=== PATIENT | male | born 1950 | race Caucasian/White ===

== ENCOUNTER 2016-09-09 21:18 | Observation (INO) | payer BC ==
[2016-09-09 21:52] LABS: Hematocrit 36.3 % (42.0-52.0); Hemoglobin 12.2 gm/dL (13.5-18.0); Mean Cell Volume 85.6 fl (78-100); Mean Corpuscular Hemoglobin 28.8 pg (27-31); Mean Corpuscular Hgb Conc 33.6 g/dl (32-36); Mean Platelet Volume 10.3 fl (6.0-9.5); Neutrophil # 6.5 K/mm3 (1.3-6.0); Platelet Count 289 K/mm3 (150-450); Red Blood Count 4.24 M/mm3 (4.7-6.0); Red Cell Distribution Width 13.2 % (11.5-14.0); White Blood Count 10.8 K/mm3 (4.0-10.5)
[2016-09-09 21:53] LABS: Urine Bilirubin Negative (NEGATIVE); Urine Blood Negative /ul (NEGATIVE); Urine Ketone 5 mg/dL (NEGATIVE); Urine Nitrite Negative (NEGATIVE); Urine Protein Negative (NEGATIVE); Urine Specific Gravity 1.025 SP.GR. (1.005-1.030); Urine pH 5.5 pH (5.0-7.0)
--- NOTE | 2016-09-09 21:54 | ERNOTE ---
GI Bleeding/Rectal Pain ER Presenting Symptoms: dark/tarry stools Time Seen by Provider: 09/09/16 21:43 Source: patient Exam Limitations: no limitations Immunizations: IMMUNIZATION HX Immunizations Up to Date Yes History of Influenza Vaccine Yes Hx Pneumococcal Vaccination Yes Allergies/Adverse Reactions: Allergies No Known Allergies Allergy (Verified 09/10/16 03:02) Home Medications: HOME MEDICATIONS Aspirin 81 mg PO DAILY 09/09/16 [Last Taken 09/09/16] Atorvastatin Calcium 09/09/16 [Last Taken 09/09/16] Glimepiride 09/09/16 [Last Taken Unknown] Lisinopril 09/09/16 [Last Taken 09/09/16] Multivitamin [One Daily Essential] 1 each PO DAILY 09/10/16 [Last Taken 09/09/16 ] metFORMIN HCL [Glucophage] 1,000 mg PO BID 09/10/16 [Last Taken 09/09/16] Narrative: Pt began having blood in his stool this evening, after 3 stools that were obviously bloody he came to the ER Timing: constant, getting worse Quality/Severity: Present: moderate Nausea/Vomiting: Present: none Abdominal Pain: Present: none Rectal Bleeding: Present: without stool Associated Symptoms: Reports: dizziness Review of Systems - Review of Systems Constitutional: Present: weakness. Absent: recent illness, fatigue EYE: Present: no symptoms reported ENT: Present: no symptoms reported Respiratory: Present: no symptoms reported Cardiology: Present: no symptoms reported Gastrointestinal/Abdominal: Present: See HPI, eating less. Absent: abdominal pain Genitourinary: Present: no symptoms reported Musculoskeletal: Present: no symptoms reported Skin: Present: no symptoms reported Neurological: Present: no symptoms reported Endocrine: Present: no symptoms reported Hematologic/Lymphatic: Absent: easy bruising, easy bleeding Psych: Present: no symptoms reported - Patient's Past Medical History Patient History - Medical: Diabetes Type 2 Patient History - Cardiac/Respiratory: Hypertension, Hyperlipidemia Patient History - Cancer: No Hx of Cancer Patient History - Surgical Procedures: No surgical history Patient History - Other: None - Family History Mother Family History - Medical: Diabetes Type 2 Family History - Cardiac/Respiratory: Coronary Heart Disease Father Family History - Medical: Diabetes Type 2 Family History - Cardiac/Respiratory: Coronary Heart Disease - Social History Living Situations: home Psych History: No pertinent hx Smoking Status: Former smoker - Immunizations Immunizations Up to Date: Yes Hx Pneumococcal Vaccination: Yes History of Influenza Vaccine: Yes Physical Exam - Physical Exam General Appearance: Present: wd/wn, alert, no apparent distress Eye Exam: Normal inspection: bilateral, PERRL: bilateral, EOMI: bilateral Ears, Nose, Throat: Present: normal ENT inspection, normal pharynx Neck: Present: normal inspection, nontender Respiratory: Present: no respiratory distress, normal breath sounds Cardiovascular/Chest: Present: regular rate, rhythm, no murmur Gastrointestinal/Abdominal: Present: normal bowel sounds, nontender, nondistended, soft Back Exam: Present: normal inspection, normal range of motion, no vertebral tenderness Extremity Exam: Present: normal inspection, normal range of motion, no edema Neurological Exam: Present: alert, oriented, normal mood/affect, no motor/ sensory deficits Skin Exam: Present: normal color, warm/dry ED Progress - Results and Orders Patient's Lab Results:: I have reviewed the patient's lab results. Results and Orders: Laboratory Tests 09/09/16 09/09/16 09/09/16 21:45 21:45 21:45 WBC 10.8 H Hgb 12.2 L Hct 36.3 L Plt Count 289 PT 10.2 INR (Anticoag Therapy) 0.98 PTT ([place]) 26.8 Sodium 141 Potassium 4.2 Chloride 104 Carbon Dioxide 22.8 L BUN 24 H Creatinine 1.08 Est GFR (Non-Af Amer) 73 BUN/Creatinine Ratio 22.2 H Random Glucose 191 H Calcium 9.1 Calcium Adj for Albumin 8.8 Total Bilirubin 0.9 AST 21 ALT 38 Alkaline Phosphatase 113 Total Protein 7.4 Albumin 4.0 Urine Color Urine Appearance Urine pH Ur Specific [place] Urine Protein Urine Glucose (UA) Urine Ketones Urine Blood Urine Nitrate Urine Bilirubin Urine Urobilinogen Ur Leukocyte Esterase Urine RBC Urine WBC Ur Epithelial Cells Urine Bacteria Urine Culture Comments Stool Occult Blood 09/09/16 09/09/16 09/10/16 21:45 21:45 01:55 WBC Hgb 11.7 L Hct 35.6 L Plt Count PT INR (Anticoag Therapy) PTT ([place]) Sodium Potassium Chloride Carbon Dioxide BUN Creatinine Est GFR (Non-Af Amer) BUN/Creatinine Ratio Random Glucose Calcium Calcium Adj for Albumin Total Bilirubin AST ALT Alkaline Phosphatase Total Protein Albumin Urine Color Yellow Urine Appearance Clear Urine pH 5.5 Ur Specific [place] 1.025 Urine Protein Negative Urine Glucose (UA) Negative Urine Ketones 5 Urine Blood Negative Urine Nitrate Negative Urine Bilirubin Negative Urine Urobilinogen 2.0 H Ur Leukocyte Esterase Negative Urine RBC None seen Urine WBC None seen Ur Epithelial Cells None seen Urine Bacteria None seen Urine Culture Comments No culture indicated Stool Occult Blood Positive H - Vital Signs Patient's Vital Signs:: I have reviewed the patient's vital signs. Vital Signs: Vital Signs 09/09/16 21:27 Temperature 37.4 C Pulse Rate 100 Respiratory 17 Rate Blood Pressure 164/92 O2 Sat by Pulse 96 Oximetry - X-Ray X-Ray #1 X-Ray: abdomen Interpretation: Interp. by la X-ray Comments: Air fluid levels with slightly dilated loops of bowel - CT/Ultrasound CT/Ultrasound Narrative: CT abd/ pelvis with IV and oral contrast. Narrowing at the rectosigmoid junction could represent peristalsis. Direct visualization recommended to exclude neoplasm. Moderate retained stool, fatty infiltration of the liver. Otherwise normal - Progress/Reassessment Chief Complaint: GI Bleed Progress:: Unchanged Progress Note-Subjective: 09/10/16 01:57 continues to have melanotic stools, 4-5 while in ED. H&H dropped small amount without dilution, decision to admit. Discussed with Mona BENNETT hospitalist. She agrees to admit for observation and repeat H & H in the am. Departure Clinical Impression: Lower GI bleeding - Departure Disposition: [facility] Condition: Fair
[2016-09-09 22:00] LABS: Urine Appearance Clear; Urine Bacteria None Seen; Urine Color Yellow; Urine RBC None Seen /hpf (0-5); Urine WBC None Seen /hpf (0-5)
[2016-09-09 22:05] LABS: Prothrombin Time (Patient) 10.2 Seconds (9.4-11.4)
[2016-09-09 22:06] LABS: Anion Gap 18.4 mmol/L (6.8-13.8); BUN/Creatinine Ratio 22.2 (9.0-21.6); Bilirubin, Total 0.9 mg/dL (0.0-1.1); Ca. Corrected For Albumin 8.8 mg/dL (8.4-10.2); Calcium * 9.1 mg/dL (7.9-10.9); Carbon Dioxide 22.8 mmol/L (24-32.6); Potassium 4.2 mmol/L (3.4-4.6); Total Protein 7.4 gm/dL (6.2-8.2)
[2016-09-09 22:07] LABS: INR 0.98 INR (0.90-1.10); Partial Thrombolplastin Time 26.8 Seconds (24-32)
[2016-09-09] MEDS ORDERED: DIATRIZOATE MEGLU/DIATRIZO SOD 30 ML BTL PO ONE (23:22)
[2016-09-09] MEDS ORDERED: DIATRIZOATE MEGLU/DIATRIZO SOD 30 ML BTL ONE (23:24)
[2016-09-10 02:02] LABS: Hematocrit 35.6 % (42.0-52.0); Hemoglobin 11.7 gm/dL (13.5-18.0)
--- NOTE | 2016-09-10 03:11 | HP ---
Chief Complaint - Chief Complaint Date of Service: 09/10/16 Chief Complaint: Bloody stool History of Present Illness: 66 years old male adm to the hospital from ER with reports of bloody stools while at home. Associated s/s dizziness and weakness. Pt stated after dinner he had bowel movement and stool was bright red. Within a few minutes he had an additional 3 bowel movement that was hematochezia. Pt then decided to come to the ER. While in ER he had 4 hematochezia. On adm to med-surg pt had bowel movement that was bright red. Hgb on adm 12.2---->11.7 trending down. pt stated he had refused colonoscopy in the past but is now agreeable. He denies hemorrhoids, constipation, abdominal pain, palpitation, hematemesis, alcohol abuse or blood disorder. He report taking Aspirin 81mg daily. PMH significant for Hypertension, diabetes II and hyperlipidemia. Plan of care discussed with pt he verbalized understanding and agrees. - Patient's Past Medical History Patient History - Medical: Diabetes Type 2 Patient History - Cardiac/Respiratory: Hypertension, Hyperlipidemia Patient History - Cancer: No Hx of Cancer Patient History - Surgical Procedures: No surgical history Patient History - Other: None - Family History Family History:: no family history of clotting disorders - Family History Mother Family History - Medical: Diabetes Type 2 Family History - Cardiac/Respiratory: Coronary Heart Disease Father Family History - Medical: Diabetes Type 2 Family History - Cardiac/Respiratory: Coronary Heart Disease - Social History Living Situations: home Psych History: No pertinent hx Smoking Status: Former smoker Have you smoked in the past 12 months: No Do you dip or chew tobacco: No Patient requests Smoking Cessation Consult: No Initiate information on Smoking Cessation: No - Immunizations Immunizations Up to Date: Yes Hx Pneumococcal Vaccination: Yes History of Influenza Vaccine: Yes Review Of Systems (GEN) - Review of Systems Generalized/Overall Review: Present: No Symptoms Reported EENTM: Present: No Symptoms Reported Respiratory: Present: No Symptoms Reported Cardiac: Present: No Symptoms Reported Abdominal: Present: Bright blood from rectum Genitourinary: Present: No Symptoms Reported Musculoskeletal: Present: No Symptoms Reported Neurological: Present: No Symptoms Reported Skin: Present: No Symptoms Reported Endocrine: Present: No Symptoms Reported Allergies/Adverse Reactions: Allergies Allergy/AdvReac Type Severity Reaction Status Date / Time No Known Allergies Allergy Verified 09/10/16 03:02 Home Medications: HOME MEDICATIONS Aspirin 81 mg PO DAILY 09/09/16 [Last Taken 09/09/16] Atorvastatin Calcium 09/09/16 [Last Taken 09/09/16] Glimepiride 09/09/16 [Last Taken Unknown] Lisinopril 09/09/16 [Last Taken 09/09/16] Multivitamin [One Daily Essential] 1 each PO DAILY 09/10/16 [Last Taken 09/09/16 ] metFORMIN HCL [Glucophage] 1,000 mg PO BID 09/10/16 [Last Taken 09/09/16] Exam - Exam Vital Signs: Vital Signs - Last Taken Temp 37.4 C 09/09/16 21:27 Pulse 101 H 09/10/16 02:17 Resp 20 09/10/16 02:17 BP 144/81 09/10/16 02:17 Pulse Ox 96 09/10/16 02:17 Constitutional: Present: Alert, Oriented x3, Cooperative, Well nourished, No distress, Middle aged, Obese ENT Exam: Present: moist mucous membranes Eye Exam: bilateral eye: PERRL Neck: Present: full range of motion Back Exam: Present: normal inspection Breasts: Present: Exam deferred Respiratory: Present: chest non-tender, lungs clear, normal breath sounds, no respiratory distress Cardiovascular/Chest: Present: normal peripheral pulses, regular rate, rhythm, no chest tenderness, no edema Peripheral Pulses: dorsalis-pedis (R): 3+, dorsalis-pedis (L): 3+ Abdomen: Present: soft, nontender, nondistended, no rebound tenderness, other - hyperactive bowel sounds /Rectal: Present: Exam deferred Extremity: Present: normal range of motion, non-tender, normal inspection, no pedal edema, no calf tenderness Skin Exam: Present: normal color, warm/dry, no cyanosis Neurologic: Present: oriented x 3 Appearance: Present: appropriate appearance Eye contact: Present: cooperative, good eye contact Thoughts: Present: normal thought pattern Diagnostic Studies: Laboratory Results WBC 10.8 K/mm3 (4.0-10.5) H 09/09/16 21:45 RBC 4.24 M/mm3 (4.7-6.0) L 09/09/16 21:45 Hgb 11.7 gm/dL (13.5-18.0) L 09/10/16 01:55 Hct 35.6 % (42.0-52.0) L 09/10/16 01:55 MCV 85.6 fl (78-100) 09/09/16 21:45 MCH 28.8 pg (27-31) 09/09/16 21:45 MCHC 33.6 g/dl (32-36) 09/09/16 21:45 RDW 13.2 % (11.5-14.0) 09/09/16 21:45 Plt Count 289 K/mm3 (150-450) 09/09/16 21:45 MPV 10.3 fl (6.0-9.5) H 09/09/16 21:45 Immature Gran % (Auto) 0.50 % (0.001-0.429) H 09/09/16 21:45 Immature Gran # (Auto) 0.05 K/mm3 (0.000-0.0310) H 09/09/16 21:45 Neutrophils % 60.0 % (42-75.0) 09/09/16 21:45 Lymphocytes % 29.7 % (20-51) 09/09/16 21:45 Monocytes % 7.6 % (0.0-9) 09/09/16 21:45 Eosinophils % 1.8 % (0.0-3.0) 09/09/16 21:45 Basophils % 0.4 % (0.0-1.0) 09/09/16 21:45 Nucleated RBC % 0.0 k/mm3 (0-1) 09/09/16 21:45 Neutrophils # 6.5 K/mm3 (1.3-6.0) H 09/09/16 21:45 Lymphocytes # 3.2 k/mm3 (1.5-3.5) 09/09/16 21:45 Monocytes # 0.8 k/mm3 (0.0-1.0) 09/09/16 21:45 Eosinophils # 0.2 k/mm3 (0.0-0.7) 09/09/16 21:45 Absolute Basophils 0.0 k/mm3 (0.0-0.1) 09/09/16 21:45 PT 10.2 Seconds (9.4-11.4) 09/09/16 21:45 INR (Anticoag Therapy) 0.98 INR (0.90-1.10) 09/09/16 21:45 PTT ([place]) 26.8 Seconds (24-32) 09/09/16 21:45 Sodium 141 mmol/L (132-142) 09/09/16 21:45 Plasma Sodium 142 mmol/L (130-142) 09/09/16 21:45 Potassium 4.2 mmol/L (3.4-4.6) 09/09/16 21:45 Chloride 104 mmol/L (97-106) 09/09/16 21:45 Carbon Dioxide 22.8 mmol/L (24-32.6) L 09/09/16 21:45 Anion Gap 18.4 mmol/L (6.8-13.8) H 09/09/16 21:45 BUN 24 mg/dL (6-23) H 09/09/16 21:45 Creatinine 1.08 mg/dL (0.4-1.4) 09/09/16 21:45 Est GFR (Non-Af Amer) 73 mL/min (60-130) 09/09/16 21:45 BUN/Creatinine Ratio 22.2 (9.0-21.6) H 09/09/16 21:45 Random Glucose 191 mg/dL (70-110) H 09/09/16 21:45 Calcium 9.1 mg/dL (7.9-10.9) 09/09/16 21:45 Calcium Adj for Albumin 8.8 mg/dL (8.4-10.2) 09/09/16 21:45 Total Bilirubin 0.9 mg/dL (0.0-1.1) 09/09/16 21:45 AST 21 U/L (0-48) 09/09/16 21:45 ALT 38 U/L (19-67) 09/09/16 21:45 Alkaline Phosphatase 113 U/L (50-170) 09/09/16 21:45 Total Protein 7.4 gm/dL (6.2-8.2) 09/09/16 21:45 Albumin 4.0 gm/dl (3.4-5.0) 09/09/16 21:45 Urine Color Yellow 09/09/16 21:45 Urine Appearance Clear 09/09/16 21:45 Urine pH 5.5 pH (5.0-7.0) 09/09/16 21:45 Ur Specific [place] 1.025 SP.GR. (1.005-1.030) 09/09/16 21:45 Urine Protein Negative mg/dL (NEGATIVE) 09/09/16 21:45 Urine Glucose (UA) Negative mg/dL (NEGATIVE) 09/09/16 21:45 Urine Ketones 5 mg/dL (NEGATIVE) 09/09/16 21:45 Urine Blood Negative /ul (NEGATIVE) 09/09/16 21:45 Urine Nitrate Negative (NEGATIVE) 09/09/16 21:45 Urine Bilirubin Negative mg/dl (NEGATIVE) 09/09/16 21:45 Urine Urobilinogen 2.0 EU/dl (NORMAL) H 09/09/16 21:45 Ur Leukocyte Esterase Negative /ul (NEGATIVE) 09/09/16 21:45 Urine RBC None seen /hpf (0-5) 09/09/16 21:45 Urine WBC None seen /hpf (0-5) 09/09/16 21:45 Ur Epithelial Cells None seen /hpf (0-5) 09/09/16 21:45 Urine Bacteria None seen (NONE) 09/09/16 21:45 Urine Culture Comments No culture indicated 09/09/16 21:45 Stool Occult Blood Positive H 09/09/16 21:45 Blood Type O Positive 09/09/16 21:45 Antibody Screen Negative 09/09/16 21:45 Assessment/Plan - Narrative Narrative: Lower GI bleeding Pt report 3 bright red stool while at home and 4 reports of bloody stool in ER Occult blood + On adm hgb 12.2--->11.7 CT ABD: pending Monitor H/H Q4hr, if Hgb< 8 plan to transfuse PRBC. Initiated IVF and monitor vital signs. Protonix 40 mg Q day Hold Aspirin 81mg q day Acute blood loss anemia- secondary to GI bleeding Plan same as #1 Diabetes II Accu-check AC+HS Keep NPO for now Hold home medications 12/2015 A1C 7.2 Hyperlipidemia-stable Hold home medications until no longer NPO. Hypertension On adm BP 144/81 Continue to monitor. Code status:Full VTE ppx: SCD and ambulate GI ppx : PPI Anticipate discharge 0-1 day and follow up with PCP. Time 30 minutes - Assessment/Plan (1) Lower GI bleeding Problem: Acute (2) Anemia associated with acute blood loss Problem: Acute (3) Hypertension Problem: Chronic Qualifiers: Hypertension type: essential hypertension Qualified Code(s): I10 - Essential (primary) hypertension (4) Hyperlipidemia Problem: Chronic (5) Diabetes Problem: Chronic Qualifiers: Diabetes mellitus type: type 2
[2016-09-10] MEDS: NORMAL SALINE 1,000 ML IV PRN ×2 (03:19→13:10)
[2016-09-10] MEDS: PANTOPRAZOLE SODIUM 40 MG in NORMAL SALINE 100 ML IV SCH (03:24)
[2016-09-10 06:02] LABS: Hematocrit 32.6 % (42.0-52.0); Hemoglobin 10.5 gm/dL (13.5-18.0); Mean Cell Volume 88.8 fl (78-100); Mean Corpuscular Hemoglobin 28.6 pg (27-31); Mean Corpuscular Hgb Conc 32.2 g/dl (32-36); Mean Platelet Volume 11.7 fl (6.0-9.5); Platelet Count 189 K/mm3 (150-450); Red Blood Count 3.67 M/mm3 (4.7-6.0); Red Cell Distribution Width 13.2 % (11.5-14.0); White Blood Count 10.5 K/mm3 (4.0-10.5)
[2016-09-10 06:18] LABS: Albumin * 3.3 gm/dl (3.4-5.0); Anion Gap 17.2 mmol/L (6.8-13.8); BUN/Creatinine Ratio 38.2 (9.0-21.6); Bilirubin, Total 0.7 mg/dL (0.0-1.1); Ca. Corrected For Albumin 8.8 mg/dL (8.4-10.2); Calcium * 8.6 mg/dL (7.9-10.9); Carbon Dioxide 18.9 mmol/L (24-32.6); Potassium 5.1 mmol/L (3.4-4.6); Total Protein 6.5 gm/dL (6.2-8.2)
[2016-09-10] MEDS ORDERED: ACETAMINOPHEN 325 MG TABLET PO PRN (06:24)
[2016-09-10] MEDS ORDERED: diphenhydrAMINE HCL 50 MG/ML VIAL IV PRN (06:24)
[2016-09-10] MEDS ORDERED: FUROSEMIDE 10 MG/ML VIAL IV PRN (06:24)
[2016-09-10] MEDS ORDERED: OCTREOTIDE ACETATE 50 MCG/ML VIAL SC SCH (07:00)
[2016-09-10 10:15] LABS: Hematocrit 31.8 % (42.0-52.0); Hemoglobin 10.5 gm/dL (13.5-18.0); Mean Cell Volume 85.9 fl (78-100); Mean Corpuscular Hemoglobin 28.4 pg (27-31); Mean Platelet Volume 10.3 fl (6.0-9.5); Platelet Count 278 K/mm3 (150-450); Red Cell Distribution Width 13.2 % (11.5-14.0); White Blood Count 10.2 K/mm3 (4.0-10.5)
[2016-09-10 10:25] LABS: Anion Gap 16.9 mmol/L (6.8-13.8); BUN/Creatinine Ratio 37.5 (9.0-21.6); Calcium * 8.6 mg/dL (7.9-10.9); Estimated Creat Clear 85.3; Potassium 4.9 mmol/L (3.4-4.6)
[2016-09-10 13:51] LABS: Hematocrit 30.4 % (42.0-52.0); Mean Cell Volume 85.9 fl (78-100); Mean Corpuscular Hemoglobin 28.2 pg (27-31); Mean Corpuscular Hgb Conc 32.9 g/dl (32-36); Mean Platelet Volume 10.2 fl (6.0-9.5); Platelet Count 273 K/mm3 (150-450); Red Blood Count 3.54 M/mm3 (4.7-6.0); Red Cell Distribution Width 13.2 % (11.5-14.0); White Blood Count 10.4 K/mm3 (4.0-10.5)
[2016-09-10 17:08] LABS: Hematocrit 29.5 % (42.0-52.0); Hemoglobin 9.8 gm/dL (13.5-18.0); Mean Cell Volume 85.5 fl (78-100); Mean Corpuscular Hemoglobin 28.4 pg (27-31); Mean Corpuscular Hgb Conc 33.2 g/dl (32-36); Mean Platelet Volume 10.3 fl (6.0-9.5); Platelet Count 274 K/mm3 (150-450); Red Blood Count 3.45 M/mm3 (4.7-6.0); Red Cell Distribution Width 13.3 % (11.5-14.0); White Blood Count 11.2 K/mm3 (4.0-10.5)
[2016-09-10] MEDS: DEXTROSE 5%-NORMAL SALINE 1,000 ML IV PRN (17:33)
--- NOTE | 2016-09-10 19:23 | CONS ---
[facility] - General Date of Service: 09/10/16 Source: patient, family, RN/MD, RN notes reviewed, old records Exam Limitations: no limitations - History of Present Illness Initial Comments: The patient started by having a loose bloody bright red bowel movement last night. He went to bed and thought it would stop but he had more bleeding and presented to the emergency room and was admitted after an initial evaluation there. Associated Symptoms: other - He denies any abdominal discomfort. Allergies/Adverse Reactions: Allergies No Known Allergies Allergy (Verified 09/10/16 03:02) Home Medications: Home Medications Medication Instructions Recorded Last Taken Aspirin 81 mg PO DAILY 09/10/16 Unknown Atorvastatin Calcium 40 mg PO DAILY 09/10/16 Unknown Glimepiride [Amaryl] 2 mg PO BID 09/10/16 Unknown Lisinopril [Zestril] 10 mg PO DAILY 09/10/16 Unknown Multivitamin [One Daily Essential] 1 each PO DAILY 09/10/16 09/09/16 metFORMIN HCL [Glucophage] 1,000 mg PO BID 09/10/16 09/09/16 - Patient's Past Medical History Patient History - Medical: Diabetes Type 2 Additional info: He has declined colonoscopy in the past Patient History - Cardiac/Respiratory: Hypertension, Hyperlipidemia Patient History - Cancer: No Hx of Cancer Patient History - Surgical Procedures: No surgical history Patient History - Other: None - Family History Family History:: no family history of clotting disorders - Family History Mother Family History - Medical: Diabetes Type 2 Family History - Cardiac/Respiratory: Coronary Heart Disease Father Family History - Medical: Diabetes Type 2 Family History - Cardiac/Respiratory: Coronary Heart Disease - Social History Living Situations: home Psych History: No pertinent hx Smoking Status: Former smoker Have you smoked in the past 12 months: No Do you dip or chew tobacco: No Patient requests Smoking Cessation Consult: No Initiate information on Smoking Cessation: No - Immunizations Immunizations Up to Date: Yes Hx Pneumococcal Vaccination: Yes History of Influenza Vaccine: Yes Procedures CLOSURE SKIN & SUBCUTANEOUS NEC (03/30/10) Medications - Medications Current Medications: Current Medications Pantoprazole Sodium 40 mg/ (Sodium Chloride) 100 mls @ 400 mls/hr IV Q24H SANDRA Stop: 10/10/16 03:01 Last Infusion: 09/10/16 03:39 Dose: Infused Sodium Chloride (Sodium Chloride 0.9%) 1,000 mls @ 125 mls/hr IV .Q8H PRN PRN Reason: HYDRATION Stop: 10/10/16 02:51 Last Admin: 09/10/16 13:10 Dose: 125 mls/hr Dextrose/Sodium Chloride (Dextrose 5%-0.9% Ns) 1,000 mls @ 125 mls/hr IV .Q8H PRN PRN Reason: HYDRATION Stop: 10/10/16 17:16 Last Admin: 09/10/16 17:33 Dose: 125 mls/hr Review of Systems - Review of Systems Generalized/Overall Review: Absent: Chills, Fever, Weight loss EENTM: Present: No Symptoms Reported Respiratory: Present: No Symptoms Reported Cardiac: Present: No Symptoms Reported Abdominal: Present: Other - He generally moves his bowels every other day a low he states he might feel better if he moved his bowels daily. This is the first episode of bleeding by his report Genitourinary: Present: No Symptoms Reported Musculoskeletal: Present: No Symptoms Reported Neurological: Present: No Symptoms Reported Skin: Present: No Symptoms Reported Physical Examination - Exam Vital Signs: Vital Signs - Last Taken Temp 36.6 C 09/10/16 14:18 Pulse 97 09/10/16 14:18 Resp 20 09/10/16 14:18 BP 130/85 09/10/16 14:18 Pulse Ox 94 09/10/16 14:18 O2 Oxygen Delivery Method Room Air Constitutional: Present: Alert, Oriented x3, Cooperative, No distress ENT Exam: Present: normal ENT inspection Eye Exam: bilateral eye: normal inspection Abdomen: Present: other - Obese with mild distention but he denies pain or tenderness currently - Results and Findings: Lab/Microbiology results last 24 hrs: Abnormal/Pending Laboratory Last 24 HRS 09/10/16 09/10/16 09/10/16 17:01 13:45 10:07 WBC 11.2 H RBC 3.45 L 3.54 L Hgb 9.8 L 10.0 L Hct 29.5 L 30.4 L MPV 10.3 H 10.2 H Potassium 4.9 H Carbon Dioxide 21.0 L Anion Gap 16.9 H BUN 33 H BUN/Creatinine Ratio 37.5 H Random Glucose 236 H Albumin 09/10/16 09/10/16 09/10/16 10:07 05:05 05:05 WBC RBC 3.70 L 3.67 L Hgb 10.5 L 10.5 L Hct 31.8 L 32.6 L MPV 10.3 H 11.7 H Potassium 5.1 H D Carbon Dioxide 18.9 L Anion Gap 17.2 H BUN 34 H BUN/Creatinine Ratio 38.2 H Random Glucose [address] scan of the abdomen and pelvis reveals a redundant sigmoid colon. There is a suggestion of narrowing or peristalsis in the sigmoid colon. There is also suggestion of diverticulosis. Nuclear medicine tagged red blood cell scan is negative for active bleeding - Assessments/Findings (1) Lower GI bleeding Diagnosis(s): Currently his bleeding is not hemodynamically significant and tagged red blood cell study is negative for ongoing bleeding. He has lost a significant amount of blood however his hemoglobin has remained stable for the last several determinations. He has never had colon screening. I discussed colon screening with him and the rationale for colonoscopy. I explained the procedure and the risks involved. His questions were answered to his apparent satisfaction and he has given consent for colonoscopy. A signed out sample Suprep kit with instructions was provided. Problem: Acute (2) Anemia associated with acute blood loss Diagnosis(s): Although the bleeding is most likely lower GI in origin, it would be reasonable to perform an EGD to rule out an upper GI source as well. This was explained to the patient and consent obtained for EGD. Problem: Acute
[2016-09-10] MEDS: INSULIN LISPRO 100 UNITS/ML VIAL SC SCH (20:27)
[2016-09-11] MEDS: PANTOPRAZOLE SODIUM 40 MG in NORMAL SALINE 100 ML IV SCH (02:07)
[2016-09-11] MEDS: DEXTROSE 5%-NORMAL SALINE 1,000 ML IV PRN (02:07)
[2016-09-11 06:14] LABS: Hematocrit 25.6 % (42.0-52.0); Hemoglobin 8.3 gm/dL (13.5-18.0); Mean Cell Volume 86.5 fl (78-100); Mean Corpuscular Hgb Conc 32.4 g/dl (32-36); Mean Platelet Volume 10.5 fl (6.0-9.5); Neutrophil # 5.3 K/mm3 (1.3-6.0); Neutrophil % 60.4 % (42-75.0); Platelet Count 226 K/mm3 (150-450); Red Blood Count 2.96 M/mm3 (4.7-6.0); Red Cell Distribution Width 13.4 % (11.5-14.0); White Blood Count 8.7 K/mm3 (4.0-10.5)
[2016-09-11] MEDS: INSULIN LISPRO 100 UNITS/ML VIAL SC SCH ×3 (06:47→17:27)
--- NOTE | 2016-09-11 07:49 | PN ---
Progess Note - Interim Narrative: 09/11/16 07:48 for Colonoscpoy and EGD today. further plans pending endoscopic findings.
[2016-09-11] MEDS ORDERED: RINGERS SOLUTION,LACTATED 1,000 ML IV ONE (10:50)
[2016-09-11 13:24] VITALS: BP 122/97
--- NOTE | 2016-09-11 15:20 | OR ---
Operative Report - Dictated Report Narrative: Operative Report Date of operation: 09/11/2016 Preoperative diagnosis: GI bleeding with anemia Postoperative diagnosis: Normal EGD (biopsy and CLOtest pending). 4 mm polyp hepatic flexure. Sigmoid diverticulosis. No active bleeding site identified Operation: EGD with biopsies. Colonoscopy with hot biopsy forceps polypectomy at the hepatic flexure Surgeon: Dr Perez Anesthesia: BRANDY FORBES CRNA Indications for procedure: The patient is a 66-year-old male presented to the emergency department after passing bright red blood per rectum. GI bleeding scan was negative. CT scan reveals a redundant sigmoid colon with no acute findings. Findings: Relatively normal EGD with exception of submucosal nodule in the mid stomach (pathology and CLOtest pending). 4 mm area of possible polypoid change in the hepatic flexure. Redundant sigmoid colon with multiple large diverticula. No active bleeding site identified Narrative of procedure: The patient was identified preoperatively, and prior to the administration of anesthetic a multidisciplinary timeout was observed EGD: With the patient in the recumbent position, a bite-block was placed, intravenous sedation was administered, and the patient's eyes covered with a towel. The flexible fiberoptic gastroscope was advanced into the posterior pharynx which appeared normal. There was no evidence of epistaxis from above. The supraglottic larynx appeared normal. The cords appeared normal, moved well , and opposed in the midline. The scope was advanced under direct vision into the proximal esophagus which appeared normal. The esophagus appeared freely distensible with normal mucosa. The esophageal mucosa appeared normal down to the gastroesophageal junction which was sharp and noninflamed. The GE junction appeared normally distensible. The scope was advanced into the stomach which was insufflated with air. The gastric mucosa appeared essentially normal. There was one area of some mucosal nodularity in the mid stomach, but the overlying mucosa appeared normal. A retroflexed view of the gastric fundus was normal as was the gastric side of the GE junction. The pylorus appeared patent. The scope was advanced into the duodenal bulb which appeared normal. The scope was advanced further to the horizontal portion of the duodenum which appeared normal, specifically the villous architecture appeared well preserved and clear bile was present. The scope was slowly withdrawn through the duodenal bulb with confirmation that no active ulcer was present. The scope was withdrawn into the stomach and a agricultural sales representative biopsy of gastric mucosa obtained for CLOtest. The area of the submucosal nodularity was biopsied and submitted to pathology. The biopsy sites were seen to be hemostatic. The insufflated air was removed, the scope withdrawn from the patient, and this portion of the procedure terminated. COLONOSCOPY: The patient was then placed in the left lateral position, and the perineum was inspected. There was no evidence of pilonidal disease or skin breakdown. The external appearance of the anus was normal. Sphincter tone was good. The flexible fiberoptic colonoscope was inserted into the rectum which was insufflated with air. The rectal mucosa and submucosal vascular pattern appeared normal, the prep was seen to be complete. The scope was advanced through the sigmoid colon, which was very redundant and contained several very large non-impacted noninflamed diverticular openings. The scope was advanced up the descending colon, and around the splenic flexure where the triangular haustral architecture of the transverse colon was seen. The scope was advanced across the transverse colon, around the hepatic flexure to the cecum, where the confluence of tenia and the ileocecal valve were identified. The mucosa at this level appeared normal. The scope was then slowly withdrawn in a circular fashion so that all aspects of colonic mucosa were inspected. At the hepatic flexure a 4 mm area of possible polypoid change was encountered this was photographed and normal and narrow band light. The area was biopsied and thoroughly destroyed with electrocautery. The site was seen to be complete and hemostatic. The colon was generally capacious in character with a very redundant sigmoid. The haustral architecture appeared well preserved throughout with no evidence of external compression. The mucosa and submucosal vascular pattern appeared normal, specifically there was no gross evidence to suggest colitis or inflammatory bowel disease and no AV malformations were seen. No additional polyps were encountered. The scope was gradually withdrawn to the level of the rectum. As much insufflated air as possible was removed. The scope was withdrawn from the patient and the procedure terminated. The patient tolerated the anesthetic and procedure well without complication and was transferred back to floor awake and in stable condition. Reviewed and electronically signed
--- NOTE | 2016-09-11 15:26 | DS ---
(1) Anemia associated with acute blood loss Problem: Resolved (2) Lower GI bleeding Problem: Resolved (3) Diabetes Problem: Chronic Qualifiers: Diabetes mellitus type: type 2 (4) Hyperlipidemia Problem: Chronic (5) Hypertension Problem: Chronic Qualifiers: Hypertension type: essential hypertension Qualified Code(s): I10 - Essential (primary) hypertension Description of Stay: Donnie Graf, is a 66 years old white male, adm to the hospital from ER with reports of bloody stools while at home on 09/10/2016. Tjis was associated with s/ s dizziness and weakness. Pt stated after dinner he had bowel movement and stool was bright red. Within a few minutes he had an additional 3 bowel movement that was hematochezia. Pt then decided to come to the ER. While in ER he had 4 hematochezia. On adm to med-surg pt had bowel movement that was bright red. Hgb on adm 12.2 to 8.5. trending down. pt stated he had refused colonoscopy in the past but was now agreeable on this admission. He denied hemorrhoids, constipation, abdominal pain, palpitation, hematemesis, alcohol abuse or blood disorder. He report taking Aspirin 81mg daily. PMH significant for Hypertension, diabetes II and hyperlipidemia. Serial H/H was done and he went down to 8.5. He had nuclear bleeding scan and that was negative. His hematochezia ceased yesterday. He underwent colonoscopy and EGD this morning and Dr. Perez did see anymore active bleeding and believed that this was a diverticular bleed. He did get a biopsy from a 4 mm polyp in the hepatic flexure. His EGD also was unremarkavle but H. Pylori is pending. He is back to regular diet and tolerated well. Will hold his Metformin for now and repeat Cr in a.m. due to CTS with contrast and hold his ASA for now. Procedures Performed: see notes below List Procedures: EGD, Colonoscopy Discharge Disposition: Home self care Disposition: Home self-care Condition: Good Discharge Activity: Activity as tolerated Discharge Diet: General/regular food Referrals: Dorota Bronson FNP [Primary Care Provider] - Problem Oriented Discharge Instructions to Patient/Family: Anemia, Nonspecific Additional Patient Instructions (free text): Follow up with PCP - SABRINA Thomas next week. at 10:15. Repeat H/H, Cr in a.m. Complete Home Medications List: Complete Home Medication List: Atorvastatin Calcium 40 mg PO DAILY 09/10/16 Glimepiride [Amaryl] 2 mg PO BID 09/10/16 Lisinopril [Zestril] 10 mg PO DAILY 09/10/16 Multivitamin [One Daily Essential] 1 each PO DAILY 09/10/16 Amb Orders for Discharge: Basic Metabolic Panel Time Frame: 09/12/16, Location: Determined By Patient CBC Time Frame: 09/12/16, Location: Determined By Patient
== END 2016-09-11 16:45 | disposition home or self-care (01) ==
LOC: ER 21:18 → MS 09-10 02:34
PROVIDERS: ADMIT Nurse Practitioner; ATTEND Internal Medicine
PROC: 0DBK8ZX Excision of Ascending Colon, Via Natural or Artificial Opening Endoscopic, Diagnostic (ICD-10-PCS; principal; 2016-09-11 10:50)
PROC: 0DJ08ZZ Inspection of Upper Intestinal Tract, Via Natural or Artificial Opening Endoscopic (ICD-10-PCS; 2016-09-11 10:50)
DX: K57.31 Diverticulosis of large intestine without perforation or abscess with bleeding (principal); D62 Acute posthemorrhagic anemia; D12.3 Benign neoplasm of transverse colon; E11.9 Type 2 diabetes mellitus without complications; I10 Essential (primary) hypertension; E78.5 Hyperlipidemia, unspecified
CPT/HCPCS: 36415; 43235; 45384; 74020; 74177; 78278; 80048; 80053; 81001; 82272; 85014; 85018; 85025; 85027; 85610; 85730; 86850; 86900; 87081; 88305; 88312; 88313; 96365; 96366; 96375; 99284; A9560; G0378

== ENCOUNTER 2019-04-26 18:56 | Observation (INO) ==
--- NOTE | 2019-04-26 19:07 | ERNOTE ---
GI Bleeding/Rectal Pain ER Presenting Symptoms: rectal bleeding Time Seen by Provider: 04/26/19 19:00 Source: patient Exam Limitations: no limitations Immunizations: IMMUNIZATION HX Immunizations Up to Date Yes History of Influenza Vaccine No Hx Pneumococcal Vaccination Yes Allergies/Adverse Reactions: Allergies No Known Allergies Allergy (Verified 04/26/19 19:05) Home Medications: HOME MEDICATIONS Multivitamin [One Daily Essential] 1 ea PO DAILY 09/10/16 [Last Taken 09/09/16] blood-glucose meter kit See Dose Instructions .ROUTE .MEDSUPPLY #1 ea 01/12/18 [Last Taken Unknown] atorvastatin 40 mg tablet 40 mg PO DAILY #90 tab 10/30/18 [Last Taken Unknown] glimepiride 2 mg tablet 2 mg PO BID #180 tab 10/30/18 [Last Taken Unknown] lisinopril 10 mg tablet 10 mg PO DAILY #90 tab 10/30/18 [Last Taken Unknown] metformin 500 mg tablet 1,000 mg PO BID #360 tab 10/30/18 [Last Taken Unknown] Narrative: Patient states that around 17:00 he had the urge to have a bowel movement and passed some stool with bright red blood twice, no clots. He denies any pain neither abdominal nor rectally, no vomiting, no fever, no aspirin use nor any blood thinners. He had a similar episode two years ago, Hb decreased to 8.3, the bleeding stoppe d on its own and a EGD and colonoscopy didn't reveal any obvious bleeding source. it was assumed to be diverticular, no bleeding since Date (Duration): 04/26/19 Time (Timing): 17:00 Timing: intermittent Nausea/Vomiting: Present: blood Abdominal Pain: Present: none Rectal Bleeding: Present: blood mixed with stool Associated Symptoms: Reports: light headedness. Denies: constipation/hard stools, diarrhea Prior Treament: Reports: similar symptoms before. Denies: recently seen Review of Systems - Review of Systems Constitutional: Absent: recent illness, fever ENT: Present: no symptoms reported Respiratory: Absent: shortness of breath, cough Cardiology: Absent: chest pain Gastrointestinal/Abdominal: Present: See HPI. Absent: nausea, vomiting, abdominal pain Genitourinary: Present: no symptoms reported Musculoskeletal: Absent: back pain Neurological: Absent: headache Hematologic/Lymphatic: Absent: easy bruising, easy bleeding Medical History (Updated 04/26/19 @ 19:41 by Dennise Victoria MD) Lower GI bleed (Resolved) Onset Date: ~09/2016 Hypertension (Chronic) Onset Date: Unknown Hyperlipidemia (Chronic) Onset Date: Unknown Diverticulosis (Chronic) Onset Date: Unknown Type 2 diabetes mellitus (Chronic) Onset Date: Unknown Surgical History: Surgical History (Updated 01/12/18 @ 08:17 by Antonia Rebolledo RN) H/O colonoscopy Onset Date: ~09/2016 Dr Perez-serrated adenoma. Recheck in 3 years H/O esophagogastroduodenoscopy Onset Date: ~09/2016 Ana- clotest negative. Mild Chemical gastritis. Family History: Family History (Updated 01/12/18 @ 08:17 by Antonia Rebolledo RN) Father , age 44 Diabetes Heart disease Mother Diabetes Social History: (Last Reviewed 04/26/19 @ 19:05 by Abimbola Crain RN) Social History: jail: No Marital status: lives independently: No household members: spouse current occupational status: employed current occupation: Manager [employer] Highest education level completed: high school graduate Service: No Tobacco: Smoking Status: Former smoker Alcohol: alcohol intake: current alcohol intake frequency: a few times a month Substance Use: substance use type: does not use Dietary Habits: caffeine: Yes caffeine comment: daily Type: coffee Physical Exam - Physical Exam General Appearance: Present: wd/wn, alert, no apparent distress, obese Respiratory: Present: no respiratory distress, normal breath sounds, no accessory muscle use, lungs clear Cardiovascular/Chest: Present: regular rate, rhythm, no murmur Gastrointestinal/Abdominal: Present: normal bowel sounds, nontender, nondistended, soft Rectal Exam: Present: nontender, normal rectal tone, other - gross blood, no obvious source of bleeding. Absent: hemorrhoids Extremity Exam: Present: no edema Neurological Exam: Present: alert, oriented, normal mood/affect Skin Exam: Present: normal color, warm/dry Progress - Results and Orders Patient's Lab Results:: I have reviewed the patient's lab results. - Vital Signs Patient's Vital Signs:: I have reviewed the patient's vital signs. Vital Signs: Vital Signs 04/26/19 19:00 Temperature 36.2 C Pulse Rate 114 H Respiratory Rate 20 Blood Pressure 143/75 O2 Sat by Pulse Oximetry 96 - X-Ray X-Ray #1 X-Ray: abdomen - normal bowel gas pattern Interpretation: Interp. by me - Progress/Reassessment Progress Note-Subjective: 04/26/19 19:28 passed passed bright red blood in bathroom with minimal stool 04/26/19 19:57 discussed with Ana recommends admission and serial H/H 04/26/19 20:03 discussed with wilver Can to admit for observation 04/26/19 20:23 patient agreed to admission Departure Clinical Impression: Lower GI bleed - Departure Disposition: Still a patient Condition: Stable
[2019-04-26 19:45] LABS: Hematocrit 33.3 % (42.0-52.0); Hemoglobin 11.1 gm/dL (13.5-18.0); Mean Cell Volume 88.8 fl (78-100); Mean Corpuscular Hemoglobin 29.6 pg (27-31); Mean Corpuscular Hgb Conc 33.3 g/dl (32-36); Mean Platelet Volume 10.4 fl (8-11.3); Neutrophil # 5.9 K/mm3 (1.3-6.0); Neutrophil % 62.5 % (42-75.0); Platelet Count 242 K/mm3 (150-450); Red Blood Count 3.75 M/mm3 (4.7-6.0); Red Cell Distribution Width 12.8 % (11.5-14.0); White Blood Count 9.5 K/mm3 (4.0-10.5)
[2019-04-26 20:02] LABS: Albumin * 3.8 gm/dl (3.4-5.0); Anion Gap 15.5 mmol/L (6.8-13.8); BUN/Creatinine Ratio 28.7 (9.0-21.6); Bilirubin, Total 1.1 mg/dL (0.0-1.1); Ca. Corrected For Albumin 8.7 mg/dL (8.4-10.2); Calcium * 8.9 mg/dL (7.9-10.9); Carbon Dioxide 22.6 mmol/L (24-32.6); Potassium 4.1 mmol/L (3.4-4.6); Total Protein 6.6 gm/dL (6.2-8.2)
[2019-04-26] MEDS: NORMAL SALINE 1,000 ML IV PRN (20:33)
[2019-04-27 02:17] LABS: Hemoglobin 9.6 gm/dL (13.5-18.0)
[2019-04-27] MEDS: NORMAL SALINE 1,000 ML IV PRN (04:44)
[2019-04-27] MEDS ORDERED: ACETAMINOPHEN 325 MG TABLET PO PRN (08:04)
[2019-04-27] MEDS ORDERED: NORMAL SALINE 1,000 ML IV ONE (08:05)
[2019-04-27] MEDS ORDERED: PANTOPRAZOLE SODIUM 40 MG in NORMAL SALINE 100 ML IV SCH (08:15)
--- NOTE | 2019-04-27 08:29 | HP ---
Chief Complaint - Chief Complaint Date of Service: 04/27/19 Time of Service: 08:16 Chief Complaint: I had a bloody bowel movement yesterday afternoon History of Present Illness: 68-year-old male with past medical history of diverticular disease, hyperlipidemia, hypertension, obesity, type 2 diabetes, and previous lower GI bleeding was evaluated in our ER for an episode of a bloody painless bowel movements that occurred in his home yesterday. Patient reports having similar episodes 2 years ago for which he was hospitalized and treated with IV fluids and placed on monitoring with serial H&H. Patient also underwent upper and lo wer endoscopy for the episode which did not reveal any significant findings, however he was found to have diverticular disease. Patient describes episode as painless with no abdominal pain or distention but after having several subsequent bloody bowel movements was concerned enough to come to the ER. He denied any other symptoms such as chest pain, shortness of breath, or dizziness. Medical History (Last Reviewed 04/26/19 @ 21:21 by Danya Smith RN) Lower GI bleed (Resolved) Onset Date: ~09/2016 Hypertension (Chronic) Onset Date: Unknown Hyperlipidemia (Chronic) Onset Date: Unknown Diverticulosis (Chronic) Onset Date: Unknown Type 2 diabetes mellitus (Chronic) Onset Date: Unknown Surgical History: Surgical History (Last Reviewed 04/26/19 @ 21:22 by Danya Smith RN) H/O colonoscopy Onset Date: ~09/2016 Dr Perez-serrated adenoma. Recheck in 3 years H/O esophagogastroduodenoscopy Onset Date: ~09/2016 Ana- clotest negative. Mild Chemical gastritis. Family History: Family History (Last Reviewed 04/26/19 @ 21:22 by Danya Smith RN) Father , age 44 Diabetes Heart disease Mother Diabetes Social History: (Last Reviewed 04/26/19 @ 21:22 by Danya Smith RN) Social History: jail: No Marital status: lives independently: No household members: spouse current occupational status: employed current occupation: [employer]er [employer] Highest education level completed: high school graduate Service: No Tobacco: Smoking Status: Former smoker Alcohol: alcohol intake: current alcohol intake frequency: a few times a month Substance Use: substance use type: does not use Dietary Habits: caffeine: Yes caffeine comment: daily Type: coffee Peds Patient Hx - Developmental: No Pertinent Hx Peds Patient Hx - Medical: No Pertinent Hx Peds Patient Hx - Cardiac/Respiratory: No Pertinent Hx Peds Patient Hx - Surgical: No Surgical History Patient History - Cancer: No Hx of Cancer Review Of Systems (GEN) - Review of Systems Generalized/Overall Review: Present: No Symptoms Reported EENTM: Present: No Symptoms Reported Respiratory: Present: No Symptoms Reported Cardiac: Present: No Symptoms Reported Abdominal: Present: Bright blood from rectum Genitourinary: Present: No Symptoms Reported Musculoskeletal: Present: No Symptoms Reported Neurological: Present: No Symptoms Reported Skin: Present: No Symptoms Reported Endocrine: Present: No Symptoms Reported Immunizations: IMMUNIZATION HX Immunizations Up to Date Yes History of Influenza Vaccine No Hx Pneumococcal Vaccination Yes Allergies/Adverse Reactions: Allergies Allergy/AdvReac Type Severity Reaction Status Date / Time No Known Allergies Allergy Verified 04/26/19 19:05 Home Medications: HOME MEDICATIONS Multivitamin [One Daily Essential] 1 ea PO DAILY 09/10/16 [Last Taken 09/09/16] blood-glucose meter See Dose Instructions .ROUTE .MEDSUPPLY #1 ea 01/12/18 [Last Taken Unknown] atorvastatin 40 mg tablet 40 mg PO DAILY #90 tab 10/30/18 [Last Taken Unknown] glimepiride 2 mg tablet 2 mg PO BID #180 tab 10/30/18 [Last Taken Unknown] lisinopril 10 mg tablet 10 mg PO DAILY #90 tab 10/30/18 [Last Taken Unknown] metformin 500 mg tablet 1,000 mg PO BID #360 tab 10/30/18 [Last Taken Unknown] Exam - Exam Vital Signs: Vital Signs - Last Taken Temp 36.7 C 04/27/19 07:00 Pulse 77 04/27/19 08:00 Resp 18 04/27/19 07:00 BP 99/66 04/27/19 07:00 Pulse Ox 97 04/27/19 07:00 Constitutional: Present: Alert, Oriented x3, Cooperative, Well developed, Well nourished, No distress, Morbidly obese Eye Exam: bilateral eye: normal inspection, PERRL, EOMI Neck: Present: non-tender, full range of motion, supple, normal inspection, trachea midline Back Exam: Present: normal inspection, no CVA tenderness, no vertebral tenderness Breasts: Present: Exam deferred Respiratory: Present: chest non-tender, lungs clear, normal breath sounds, no respiratory distress, no accessory muscle use Cardiovascular/Chest: Present: normal peripheral pulses, regular rate, rhythm, no chest tenderness, no edema, no gallop, no JVD, no murmur, no rub Peripheral Pulses: carotid (R): 3+, carotid (L): 3+, femoral (R): 3+, femoral (L): 3+, dorsalis-pedis (R): 4+, dorsalis-pedis (L): 4+ Abdomen: Present: Normal bowel sounds, soft, nontender, nondistended, no rebound tenderness, no hepatospenomegaly, no masses, obese /Rectal: Present: Exam deferred Extremity: Present: normal range of motion, non-tender, normal inspection, no pedal edema, no calf tenderness, normal capillary refill, pelvis stable Skin Exam: Present: normal color, warm/dry, no cyanosis Lymphatic: Present: no adenopathy Neurologic: Present: pit clerk II-XII nml as tested, normal cerebellar test, no motor/sensory deficits, alert, normal mood/affect, oriented x 3 Appearance: Present: appropriate appearance, appropriate insight, neat, no memory impairment Eye contact: Present: cooperative, good eye contact, normal speech Thoughts: Present: normal thought pattern, no apparent hallucination Diagnostic Studies: Abnormal Lab Results 04/26/19 04/26/19 04/26/19 Range/Units 19:21 19:40 19:45 RBC 3.75 L (4.7-6.0) M/mm3 Hgb 11.1 L (13.5-18.0) gm/dL Hct 33.3 L (42.0-52.0) % Immature Gran # (Auto) 0.04 H (0.000-0.0310) K/mm3 Carbon Dioxide 22.6 L (24-32.6) mmol/L Anion Gap 15.5 H (6.8-13.8) mmol/L BUN 27 H D (6-23) mg/dL BUN/Creatinine Ratio 28.7 H (9.0-21.6) Random Glucose 213 H (70-110) mg/dL Stool Occult Blood Positive H 04/27/19 Range/Units 02:15 RBC (4.7-6.0) M/mm3 Hgb 9.6 L (13.5-18.0) gm/dL Hct 29.0 L (42.0-52.0) % Immature Gran # (Auto) (0.000-0.0310) K/mm3 Carbon Dioxide (24-32.6) mmol/L Anion Gap (6.8-13.8) mmol/L BUN (6-23) mg/dL BUN/Creatinine Ratio (9.0-21.6) Random Glucose (70-110) mg/dL Stool Occult Blood Laboratory Results WBC 9.5 K/mm3 (4.0-10.5) 04/26/19 19:40 RBC 3.75 M/mm3 (4.7-6.0) L 04/26/19 19:40 Hgb 9.6 gm/dL (13.5-18.0) L 04/27/19 02:15 Hct 29.0 % (42.0-52.0) L 04/27/19 02:15 MCV 88.8 fl (78-100) 04/26/19 19:40 MCH 29.6 pg (27-31) 04/26/19 19:40 MCHC 33.3 g/dl (32-36) 04/26/19 19:40 RDW 12.8 % (11.5-14.0) 04/26/19 19:40 Plt Count 242 K/mm3 (150-450) 04/26/19 19:40 MPV 10.4 fl (8-11.3) 04/26/19 19:40 Immature Gran % (Auto) 0.40 % (0.001-0.429) 04/26/19 19:40 Immature Gran # (Auto) 0.04 K/mm3 (0.000-0.0310) H 04/26/19 19:40 Neutrophils % 62.5 % (42-75.0) 04/26/19 19:40 Lymphocytes % 28.3 % (20-51) 04/26/19 19:40 Monocytes % 7.4 % (0.0-9) 04/26/19 19:40 Eosinophils % 1.0 % (0.0-3.0) 04/26/19 19:40 Basophils % 0.4 % (0.0-1.0) 04/26/19 19:40 Nucleated RBC % 0.0 k/mm3 (0-1) 04/26/19 19:40 Neutrophils # 5.9 K/mm3 (1.3-6.0) 04/26/19 19:40 Lymphocytes # 2.68 k/mm3 (1.5-3.5) 04/26/19 19:40 Monocytes # 0.7 k/mm3 (0.0-1.0) 04/26/19 19:40 Eosinophils # 0.1 k/mm3 (0.0-0.7) 04/26/19 19:40 Absolute Basophils 0.0 k/mm3 (0.0-0.1) 04/26/19 19:40 Sodium 136 mmol/L (132-142) 04/26/19 19:45 Plasma Sodium 138 mmol/L (130-142) 04/26/19 19:45 Potassium 4.1 mmol/L (3.4-4.6) 04/26/19 19:45 Chloride 102 mmol/L (97-106) 04/26/19 19:45 Carbon Dioxide 22.6 mmol/L (24-32.6) L 04/26/19 19:45 Anion Gap 15.5 mmol/L (6.8-13.8) H 04/26/19 19:45 BUN 27 mg/dL (6-23) H D 04/26/19 19:45 Creatinine 0.94 mg/dL (0.4-1.4) 04/26/19 19:45 Est GFR (Non-Af Amer) 85 mL/min (60-130) 04/26/19 19:45 BUN/Creatinine Ratio 28.7 (9.0-21.6) H 04/26/19 19:45 Random Glucose 213 mg/dL (70-110) H 04/26/19 19:45 Calcium 8.9 mg/dL (7.9-10.9) 04/26/19 19:45 Calcium Adj for Albumin 8.7 mg/dL (8.4-10.2) 04/26/19 19:45 Total Bilirubin 1.1 mg/dL (0.0-1.1) 04/26/19 19:45 AST 21 U/L (0-48) 04/26/19 19:45 ALT 27 U/L (19-67) 04/26/19 19:45 Alkaline Phosphatase 90 U/L (50-170) 04/26/19 19:45 Total Protein 6.6 gm/dL (6.2-8.2) 04/26/19 19:45 Albumin 3.8 gm/dl (3.4-5.0) 04/26/19 19:45 Stool Occult Blood Positive H 04/26/19 19:21 Assessment/Plan - Narrative Narrative: Patient was evaluated and medical chart was reviewed and decision to admit for a lower GI bleed and mild dehydration was made. Patient reports several more episodes of bloody stools throughout the night since reaching the floor, the last one occurring this morning around 6 AM. He denies any abdominal pain or a ny new symptoms. Currently he is being treated with IV fluids for hydration and for improvement of his hypotension. Patient was evaluated by the general surgeon Dr. Perez who recommends waiting for a bleeding scan to confirm that the bleeding has stopped and if his hemoglobin stabilizes he can be discharged home with instructions to follow-up with his PCP. In the meantime patient has been placed on Protonix and is being monitored with serial hemoglobin and hematocrit. So far his hemoglobin has dropped from 11.1-9.6, will wait for the next 1 to determine if there is ongoing bleeding. - Assessment/Plan (1) Lower GI bleed Problem: Acute (2) Diverticulosis Problem: Chronic (3) Type 2 diabetes mellitus Problem: Chronic Qualifiers: (4) Hypotension Problem: Acute Qualifiers: Hypotension type: hypotension due to hypovolemia Qualified Code(s): I95.89 - Other hypotension; E86.1 - Hypovolemia (5) Anemia Problem: Acute Qualifiers: Other causes of anemia: acute posthemorrhagic
[2019-04-27 08:50] LABS: Hematocrit 29.1 % (42.0-52.0); Hemoglobin 9.6 gm/dL (13.5-18.0)
--- NOTE | 2019-04-27 08:53 | CONS ---
[facility] - General Date of Service: 04/26/19 Source: patient, family, RN/MD, RN notes reviewed, old records Exam Limitations: no limitations - History of Present Illness Initial Comments: He felt fine when he went to work at 3 AM. He stopped in [employer] to fuel up and felt the urge to move his bowels. He had blood and bowel movement. He has had several bloody stool since. He has not had any abdominal pain. He does not feel lightheaded. Severity: mild Modifying Factors - (Worsens): Reports: other - Nothing Modifying Factors - (Improves): Reports: other - Nothing Associated Symptoms: denies symptoms Allergies/Adverse Reactions: Allergies No Known Allergies Allergy (Verified 04/26/19 19:05) Home Medications: Home Medications Medication Instructions Recorded Last Taken Multivitamin [One Daily Essential] 1 ea PO DAILY 09/10/16 09/09/16 blood-glucose meter See Dose Instructions .ROUTE 01/12/18 Unknown .MEDSUPPLY #1 ea atorvastatin 40 mg tablet 40 mg PO DAILY #90 tab 10/30/18 Unknown glimepiride 2 mg tablet 2 mg PO BID #180 tab 10/30/18 Unknown lisinopril 10 mg tablet 10 mg PO DAILY #90 tab 10/30/18 Unknown metformin 500 mg tablet 1,000 mg PO BID #360 tab 10/30/18 Unknown Procedures CLOSURE SKIN & SUBCUTANEOUS NEC (03/30/10) Excision of Ascending Colon, Via Natural or Artificial Opening Endoscopic, Diagnostic (09/10/16) Inspection of Upper Intestinal Tract, Via Natural or Artificial Opening Endoscopic (09/10/16) Medications - Medications Current Medications: Current Medications See home medication list (reviewed) Review of Systems - Review of Systems Generalized/Overall Review: Absent: Chills, Fever, Diaphoresis, Fatigue EENTM: Present: No Symptoms Reported Respiratory: Absent: Shortness of Breath Cardiac: Absent: Chest Pain, Palpitations, Syncope Abdominal: Present: Bright blood from rectum. Absent: Abdominal Pain Genitourinary: Present: No Symptoms Reported Musculoskeletal: Present: No Symptoms Reported Neurological: Present: No Symptoms Reported Skin: Present: No Symptoms Reported Endocrine: Present: No Symptoms Reported Physical Examination - Exam Vital Signs: Vital Signs - Last Taken Temp 36.2 C 04/26/19 19:00 Pulse 114 04/26/19 19:00 Resp 20 04/26/19 19:00 BP 143/75 04/26/19 19:00 Pulse Ox 96 04/26/19 19:00 O2 Oxygen Delivery Method Room Air Constitutional: Present: Alert, Oriented x3, Cooperative, Well developed, No distress, Overweight ENT Exam: Present: normal ENT inspection, hearing grossly normal Eye Exam: bilateral eye: normal inspection Neck: Present: full range of motion, normal inspection, other - Short thick neck Respiratory: Present: no respiratory distress Cardiovascular/Chest: Present: regular rate, rhythm, other - Tachycardic but normotensive Abdomen: Present: nontender, other - He denies abdominal pain or tenderness currently /Rectal: Present: Exam deferred, Other - Dr. Victoria reports blood in the rectum Extremity: Present: normal range of motion, normal inspection Skin Exam: Present: warm/dry Neurologic: Present: net web application developer II-XII nml as tested, normal cerebellar test, no motor/sensory deficits Appearance: Present: appropriate appearance, appropriate insight, neat Eye contact: Present: cooperative, good eye contact, normal speech Thoughts: Present: normal thought pattern - Results and Findings: Narrative: Initial hemoglobin 11.1 with normal platelets and normal WBC. Plain abdominal x-ray shows non-obstructive bowel gas pattern there are some fluid levels in the left colon (formal report pending) Lab/Microbiology results last 24 hrs: Abnormal/Pending Laboratory Last 24 HRS 04/27/19 04/26/19 04/26/19 02:15 19:45 19:40 RBC 3.75 L Hgb 9.6 L 11.1 L Hct 29.0 L 33.3 L Immature Gran # (Auto) 0.04 H Carbon Dioxide 22.6 L Anion Gap 15.5 H BUN 27 H D BUN/Creatinine Ratio 28.7 H Random Glucose 213 H Stool Occult Blood 04/26/19 19:21 RBC Hgb Hct Immature Gran # (Auto) Carbon Dioxide Anion Gap BUN BUN/Creatinine Ratio Random Glucose Stool Occult Blood Positive H - Assessments/Findings (1) Lower GI bleed Diagnosis(s): In 2017 he had a similar episode of GI bleeding. His hemoglobin decreased to 8.3. Bleeding scan at that time was negative. EGD at that time was normal. Colonoscopy revealed a very redundant sigmoid colon with numerous large diverticular openings. He states he has been taking Benefiber 2 teaspoons daily and this is helped his bowel movements but he still occasionally skips days. He did not have pain with this bleeding episode and denies upper GI symptoms. A nuclear medicine bleeding scan cannot be obtained at night. Would recommend observation admission for serial hemoglobin and hematocrits and vital sign determinations with a bleeding scan in the morning if he still passing blood. Discussed the case with Dr. Victoria and examined the patient in the ER. Will follow the patient Problem: Acute
--- NOTE | 2019-04-27 08:56 | PN ---
Dictated Progress Note - Date and Time Seen: Date: 04/27/19 Time: 08:54 - Progress Note Narrative: Vital Signs - Last Taken Temp 36.7 C 04/27/19 07:00 Pulse 77 04/27/19 08:00 Resp 18 04/27/19 07:00 BP 99/66 04/27/19 07:00 Pulse Ox 97 04/27/19 07:00 Abnormal/Pending Laboratory Last 24 HRS 04/27/19 04/27/19 04/26/19 08:38 02:15 19:45 RBC Hgb 9.6 L 9.6 L Hct 29.1 L 29.0 L Immature Gran # (Auto) Carbon Dioxide 22.6 L Anion Gap 15.5 H BUN 27 H D BUN/Creatinine Ratio 28.7 H Random Glucose 213 H Stool Occult Blood 04/26/19 04/26/19 19:40 19:21 RBC 3.75 L Hgb 11.1 L Hct 33.3 L Immature Gran # (Auto) 0.04 H Carbon Dioxide Anion Gap BUN BUN/Creatinine Ratio Random Glucose Stool Occult Blood Positive H He was placed on observation last night for presumed lower GI bleeding. He has passed small amounts of blood twice mixed with stool. He is a little lightheaded when he stands up and his blood pressure has decreased but his pulse is normal. Repeat hemoglobin this morning is 9.6. Would recommend that we proceed with GI bleeding scan, as if this is normal he could be discharged with PCP office follow-up.
[2019-04-27] MEDS ORDERED: MULTIVITAMINS 1 CAP CAPSULE PO SCH (09:00)
[2019-04-27] MEDS ORDERED: LISINOPRIL 10 MG TABLET PO SCH (09:00)
[2019-04-27] MEDS ORDERED: GLIMEPIRIDE 2 MG TABLET PO SCH (09:00)
[2019-04-27 14:20] LABS: Hematocrit 28.1 % (42.0-52.0); Hemoglobin 9.3 gm/dL (13.5-18.0)
--- NOTE | 2019-04-27 14:38 | DS ---
(1) Lower GI bleed Problem: Resolved (2) Diverticulosis Problem: Chronic (3) Type 2 diabetes mellitus Problem: Chronic Qualifiers: (4) Hypotension Problem: Resolved Qualifiers: Hypotension type: hypotension due to hypovolemia Qualified Code(s): I95.89 - Other hypotension; E86.1 - Hypovolemia (5) Anemia Problem: Acute Qualifiers: Other causes of anemia: acute posthemorrhagic Date of Discharge:: 04/27/19 Description of Stay: 68-year-old male admitted for lower GI bleeding with subsequent anemia was evaluated at bedside and was found to be afebrile and in no acute distress. Patient's patient nuclear bleeding scan was negative for any ongoing GI bleeding, hemoglobin has remained stable at 9.3 and patient denies any abdominal pain or bloating. He was evaluated by the general surgeon who recommends disc harging him if bleeding scan is negative, therefore after reviewing the results decision to discharge patient home with an order to undergo CBC testing and 2 days to reevaluate hemoglobin and hematocrit was made. It was explained to patient that it is likely that he had a diverticular bleed which does not need repeat endoscopies at the moment. However he is to be watchful for any further bleeding. Patient is scheduled to see his PCP on Friday he was instructed to get the lab work done before hand so that the results can be ready by the time he sees . Procedures Performed: none Results and Findings: Lab Pending Results 04/26/19 19:21: Stool Occult Blood Positive H 04/26/19 19:40: WBC 9.5, RBC 3.75 L, Hgb 11.1 L, Hct 33.3 L, MCV 88.8, MCH 29.6, MCHC 33.3, RDW 12.8, Plt Count 242, MPV 10.4, Immature Gran % (Auto) 0.40, Immature Gran # (Auto) 0.04 H, Neutrophils % 62.5, Lymphocytes % 28.3, Monocytes % 7.4, Eosinophils % 1.0, Basophils % 0.4, Nucleated RBC % 0.0, Neutrophils # 5.9, Lymphocytes # 2.68, Monocytes # 0.7, Eosinophils # 0.1, Absolute Basophils 0.0 04/26/19 19:45: Sodium 136, Plasma Sodium 138, Potassium 4.1, Chloride 102, Carbon Dioxide 22.6 L, Anion Gap 15.5 H, BUN 27 H D, Creatinine 0.94, Est GFR (Non-Af Amer) 85, BUN/Creatinine Ratio 28.7 H, Random Glucose 213 H, Calcium 8.9, Calcium Adj for Albumin 8.7, Total Bilirubin 1.1, AST 21, ALT 27, Alkaline Phosphatase 90, Total Protein 6.6, Albumin 3.8 04/27/19 02:15: Hgb 9.6 L, Hct 29.0 L 04/27/19 08:38: Hgb 9.6 L, Hct 29.1 L 04/27/19 14:03: Hgb 9.3 L, Hct 28.1 L Discharge Location: Home Disposition: Home self-care Condition: Stable Face to Face Encounter completed per [facility] Guidelines: No Discharge Activity: Activity as tolerated Discharge Diet: Consistent carbs Referrals: Dorota Bronson FNP [Primary Care Provider] - Complete Home Medications List: Complete Home Medication List: Multivitamin [One Daily Essential] 1 ea PO DAILY 09/10/16 blood-glucose meter See Dose Instructions .ROUTE .MEDSUPPLY #1 ea 01/12/18 atorvastatin 40 mg tablet 40 mg PO DAILY #90 tab 10/30/18 glimepiride 2 mg tablet 2 mg PO BID #180 tab 10/30/18 lisinopril 10 mg tablet 10 mg PO DAILY #90 tab 10/30/18 metformin 500 mg tablet 1,000 mg PO BID #360 tab 10/30/18
[2019-04-27 15:17] VITALS: BP 130/76
[2019-04-27] MEDS ORDERED: ROSUVASTATIN CALCIUM 20 MG TABLET PO SCH (21:00)
== END 2019-04-27 15:40 | disposition home or self-care (01) ==
LOC: MS 18:56 → ER 18:56 → MS 20:50
PROVIDERS: ADMIT Family Medicine; ATTEND Family Medicine
CPT/HCPCS: 36415; 74019; 74020; 78278; 80053; 82272; 85014; 85018; 85025; 96374; 99285; A9560; G0378